=== PATIENT | male | born 1930 | race Caucasian/White ===

== ENCOUNTER 2016-12-07 20:06 | Emergency (ER) | payer MEDICARE, OTHER ==
[~2016-12-07 20:06] MED LIST: ARIC10TA; BABY81CH; BACT800T5 PO; CALCCHW12; CLAR5CHW; CYMB60CA3 PO; DOCU10CA PO; ELIQ5TAB PO; FLOM5CAP PO; FURO20TA2 PO; IPRASOL4 NEB; KEFL500C7 PO; METO-207 PO; NEUR100C PO; NITR0.4S; NITR4TASL SL; OMEGA; PERC5TAB6 PO; PRAV40TA2 PO; PRED FORTE; PROS5TAB; PROS5TAB PO; ROPI0.5T PO; SIMV40TA2; SYNT25TA PO; THERGRAN; TYLE325T5 PO; UROXATROL; ZOLO50TA
[2016-12-07 21:04] LABS: MEAN CORPUSCULAR HEMOGLOBIN 29.6 pg (27.0-33.0); MEAN CORPUSCULAR HGB CONC 32.9 g/dl (32.0-36.5); MEAN CORPUSCULAR VOLUME 90.1 fl (80.0-96.0); RED CELL DISTRIBUTION WIDTH 13.2 % (11.5-14.5); WHITE BLOOD COUNT 4.4 K/mm3 (4.0-10.0)
[2016-12-07 21:42] LABS: ALBUMIN 3.6 GM/DL (3.2-5.2); ALBUMIN/GLOBULIN RATIO 1.24 (1.00-1.93); ALKALINE PHOSPHATASE 78 U/L (45-117); ALT/SGPT 19 U/L (12-78); ANION GAP 7 MEQ/L (8-16); AST/SGOT 19 U/L (15-37); BILIRUBIN,DIRECT 0.2 MG/DL (0.0-0.2); BILIRUBIN,TOTAL 0.6 MG/DL (0.2-1.0); BLOOD UREA NITROGEN 16 MG/DL (7-18); CALCIUM LEVEL 8.1 MG/DL (8.8-10.2); CARBON DIOXIDE LEVEL 34 MEQ/L (21-32); CHLORIDE LEVEL 105 MEQ/L (98-107); CREATININE FOR GFR 1.21 MG/DL (0.70-1.30); GLOMERULAR FILTRATION RATE > 60.0 (>35); GLUCOSE, FASTING 94 MG/DL (83-110); POTASSIUM SERUM 3.8 MEQ/L (3.5-5.1); SODIUM LEVEL 146 MEQ/L (136-145); TOTAL PROTEIN 6.5 GM/DL (6.4-8.2)
--- NOTE | 2016-12-08 03:20 | EDDOCDS ---
Physician Documentation [facility] Name: Nadeem Guerra Age: 86 yrs Sex: Male : 1930 Arrival Date: 12/07/2016 Time: 20:06 Bed OBSERVATION Private MD: Lito Carter M.D. Disposition: 12/08/16 03:09 Discharged to Home/Self Care. Impression: Poisoning by antiallergic and antiemetic drugs, accidental (unintentional). - Condition is Stable. - Discharge Instructions: Overdose, Accidental. - Medication Reconciliation, Local Pharmacy Hours form. - Follow up: Lito Carter; When: As needed; Reason: Continuance of care. - Problem is an acute exacerbation. - Symptoms have improved. Historical: - Allergies: No known drug Allergies; - Home Meds: 1. metoprolol tartrate 25 mg Oral tab 1 tab 2 times per day 2. Eliquis 5 mg oral tab 1 tab 2 times per day 3. levothyroxine 25 mcg Oral cap 1 cap once daily 4. furosemide 20 mg Oral tab 1 tab once daily 5. finasteride 5 mg oral tab 1 tab once daily 6. tamsulosin 0.4 mg oral cp24 1 cap once daily 7. pravastatin 40 mg oral tab 1 tab once daily 8. ropinirole 0.5 mg oral tab 1 tab at bedtime 9. Vitamin D3 1,000 unit oral cap daily 10. ketorolac tromethamine BID in right eye 11. ipratropium bromide 0.02 % inhalation soln 1.25 mL 4 times per day - PMHx: COPD; Dementia; Atrial Fib; Hypothyroidism; BPH; High Cholesterol; Glaucoma; Cataracts; - PSHx: Appendectomy; Colostomy Reversal; Hernia repair; - Social history: Smoking status: Patient states former smoker of tobacco. No barriers to communication noted, The patient speaks fluent Cameroonian. - Family history: No immediate family members are acutely ill. - : The pt / caregiver states he / she is on anticoagulants: Home medication list is obtained from family members. - Exposure Risk Screening:: None identified. Vital Signs: 12/07 20:36 BP 134 / 73; Pulse 109; Resp 22; Temp 100.0(TE); Pulse Ox 99% on R/A; mv5 21:02 Pulse Ox 98% ; mv5 21:02 BP 128 / 73 (auto/); Pulse 85; Resp 20; mv5 21:32 BP 135 / 73 (auto/); mv5 21:37 Pulse 112 MON; mv5 22:02 BP 148 / 76 (auto/); mv5 22:02 Pulse 100 MON; Pulse Ox 98% ; mv5 22:32 BP 129 / 79 (auto/); mv5 22:32 Pulse 96 MON; Pulse Ox 98% ; mv5 23:02 BP 156 / 81 (auto/); mv5 23:02 Pulse 96 MON; Pulse Ox 97% ; mv5 23:32 BP 92 / 52 (auto/); mv5 23:32 Pulse 92 MON; Pulse Ox 97% ; mv5 12/08 00:02 BP 104 / 61 (auto/); mv5 00:02 Pulse 94 MON; Pulse Ox 96% ; mv5 00:32 BP 114 / 82 (auto/); mv5 00:32 Pulse 90 MON; Pulse Ox 96% ; mv5 01:02 BP 121 / 84 (auto/); mv5 01:02 Pulse 88 MON; Pulse Ox 96% ; mv5 01:32 BP 117 / 59 (auto/); mv5 01:32 Pulse 84 MON; Pulse Ox 95% ; mv5 02:02 BP 125 / 75 (auto/); mv5 02:02 Pulse 88 MON; Pulse Ox 94% ; mv5 02:32 BP 124 / 92 (auto/); mv5 02:32 Pulse 88 MON; Pulse Ox 98% ; mv5 MDM: 12/07 20:43 Consult PFS/PSA/Hot Die Picker ordered. mm11 20:43 Call Poison Control ordered. mm11 20:43 Detain Pt Until Medically/PFS Cleared ordered. mm11 20:43 IV Saline Lock ordered. mm11 20:44 Acetaminophen Level Ordered. EDMS 20:44 Basic Metabolic Profile Ordered. EDMS 20:44 Complete Blood Count Ordered. EDMS 20:44 Drug Eval Toxicology ED Only Ordered. EDMS 20:44 Ethyl Alcohol (ethanol) Ordered. EDMS 20:44 Liver Profile Ordered. EDMS 20:44 Salicylate Level Ordered. EDMS 20:44 Thyroid Stimulating Hormone Ordered. EDMS 22:34 [facility] Payment Agreement was scanned into [employer] and attached to record. jp5 22:34 Financial registration complete. jp5 12/08 01:01 Consult PFS/PSA/Hot Die Picker complete. cl 02:35 Acetaminophen Level Reviewed. mm11 02:35 Basic Metabolic Profile Reviewed. mm11 02:35 Complete Blood Count Reviewed. mm11 02:35 Salicylate Level Reviewed. mm11 02:35 Ethyl Alcohol (ethanol) Reviewed. mm11 02:35 Liver Profile Reviewed. mm11 02:35 Thyroid Stimulating Hormone Reviewed. mm11 02:35 Ambulate Patient to Assess Patient Safety ordered. mm11 Signatures: Dispatcher MedHost EDMS Pernell Norton, PSA PSA cl Kieran Sanchez, DO mm11 Stefania العراقي jp5 Delia Fowler,RN RN mv5 The chart was reviewed and I authenticate all verbal orders and agree with the evaluation and treatment provided.Attachments: 12/07 22:34 [facility] Payment Agreement jp5 MTDD
--- NOTE | 2016-12-08 03:20 | EDDOCDS ---
Nurse's Notes [facility] Name: Nadeem Guerra Age: 86 yrs Sex: Male : 1930 Arrival Date: 12/07/2016 Time: 20:06 Bed OBSERVATION Private MD: Lito Carter M.D. 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 Pt arrives drowsy, reports dementia at baseline and states pt is usually asleep at this time of evening. EMS denies N/V/D but gave nebulizer for chest congestion and wheezes. Adult Sepsis Screening: The patient does not have new or worsening altered mentation. Patient's respiratory rate is less than 22. Systolic blood pressure is greater than 100. Patient has a qSOFA score of 0- Negative Sepsis Screen. Suicide/Homicide risk assessment- Unable to assess, . Baseline dementia. Status: Patient is not a automotive services manager or dependent. Transition of care: patient was not received from another setting of care. 20:22 Acuity: JOCELYN Level 2 mv5 20:22 Method Of Arrival: Ambulance mv5 Triage Assessment: 20:36 General: Appears in no apparent distress, to be sleeping. at bedside to give mv5 information.. Pain: Denies pain. Neurological: Level of Consciousness is Oriented to person, Pt responds easily to verbal command, states "yes" when asked if he can open his eyes-does not open eyes.. Cardiovascular: Capillary refill is sluggish reports peripheral circulation is poor at baseline, fingertips cool.. Heart tones S1 S2 present Pulses are all present. Respiratory: Airway is patent Respiratory effort is even, unlabored, Respiratory pattern is regular, symmetrical. Derm: Skin is pink, warm & dry. Historical: - Allergies: No known drug Allergies; - Home Meds: 1. metoprolol tartrate 25 mg Oral tab 1 tab 2 times per day 2. Eliquis 5 mg oral tab 1 tab 2 times per day 3. levothyroxine 25 mcg Oral cap 1 cap once daily 4. furosemide 20 mg Oral tab 1 tab once daily 5. finasteride 5 mg oral tab 1 tab once daily 6. tamsulosin 0.4 mg oral cp24 1 cap once daily 7. pravastatin 40 mg oral tab 1 tab once daily 8. ropinirole 0.5 mg oral tab 1 tab at bedtime 9. Vitamin D3 1,000 unit oral cap daily 10. ketorolac tromethamine BID in right eye 11. ipratropium bromide 0.02 % inhalation soln 1.25 mL 4 times per day - PMHx: COPD; Dementia; Atrial Fib; Hypothyroidism; BPH; High Cholesterol; Glaucoma; Cataracts; - PSHx: Appendectomy; Colostomy Reversal; Hernia repair; - Social history: Smoking status: Patient states former smoker of tobacco. No barriers to communication noted, The patient speaks fluent Kazakh. - Family history: No immediate family members are acutely ill. - : The pt / caregiver states he / she is on anticoagulants: Home medication list is obtained from family members. - Exposure Risk Screening:: None identified. Screenin:42 Screening information is obtained from family members. Fall risk: At risk due to mv5 confusion/dementia. Assistance ADL's: requires no assistance with activities of daily living. Abuse/DV Screen: The patient / caregiver reports he/she is: not in a situation that causes fear, pain or injury. Nutritional screening: No deficits noted. Advance Directives: There is an active DNR order. home support is adequate. Assessment: 20:42 General: See triage assessment. mv5 21:15 General: Appears in no apparent distress, to be sleeping. family at bedside. Spoke with mv5 Bruna at [facility] poison control centers and she advised 4-6 hours of observation until pt has returned to baseline with most concerning side effect being somnolence.. Respiratory: Airway is patent Respiratory effort is even, unlabored, Respiratory pattern is regular, symmetrical. GI: Abdomen is obese, Bowel sounds present X 4 quads. Abd is soft X 4 quads. Derm: Skin is pink, warm & dry. 22:15 General: Appears in no apparent distress, comfortable, Repositions self in bed for mv5 comfort. at bedside.. Cardiovascular: Rhythm is sinus rhythm No ectopy. Respiratory:. Respiratory: Airway is patent Respiratory effort is even, unlabored, Respiratory pattern is regular, symmetrical. Derm: Skin is pink, warm & dry. 23:28 General: Appears in no apparent distress, at bedside.. Respiratory: Airway is mv5 patent Respiratory effort is even, unlabored, Respiratory pattern is regular, symmetrical. GI:. Derm: Skin is pink, warm & dry. 12/08 00:25 General: Appears in no apparent distress, to be sleeping. Spoke with Bruna at [facility] mv5 poison control.. Respiratory: Airway is patent Respiratory effort is even, unlabored, Respiratory pattern is regular, symmetrical. Derm: Skin is pink, warm & dry. 01:57 General: Appears in no apparent distress. Respiratory: Airway is patent Respiratory mv5 effort is even, unlabored, Respiratory pattern is regular, symmetrical. Derm: Skin is pink, warm & dry. 02:50 General: Appears in no apparent distress, Pt ambulated in hallway with stand by assist. mv5 Pt able to ambulate independently. aware.. 03:14 General: Appears in no apparent distress, comfortable. Neurological: Level of mv5 Consciousness is awake, alert. Respiratory: Airway is patent Respiratory effort is even, unlabored, Respiratory pattern is regular, symmetrical. Derm: Skin is pink, warm & dry. Vital Signs: 12/07 20:36 BP 134 / 73; Pulse 109; Resp 22; Temp 100.0(TE); Pulse Ox 99% on R/A; mv5 21:02 Pulse Ox 98% ; mv5 21:02 BP 128 / 73 (auto/); Pulse 85; Resp 20; mv5 21:32 BP 135 / 73 (auto/); mv5 21:37 Pulse 112 MON; mv5 22:02 BP 148 / 76 (auto/); mv5 22:02 Pulse 100 MON; Pulse Ox 98% ; mv5 22:32 BP 129 / 79 (auto/); mv5 22:32 Pulse 96 MON; Pulse Ox 98% ; mv5 23:02 BP 156 / 81 (auto/); mv5 23:02 Pulse 96 MON; Pulse Ox 97% ; mv5 23:32 BP 92 / 52 (auto/); mv5 23:32 Pulse 92 MON; Pulse Ox 97% ; mv5 12/08 00:02 BP 104 / 61 (auto/); mv5 00:02 Pulse 94 MON; Pulse Ox 96% ; mv5 00:32 BP 114 / 82 (auto/); mv5 00:32 Pulse 90 MON; Pulse Ox 96% ; mv5 01:02 BP 121 / 84 (auto/); mv5 01:02 Pulse 88 MON; Pulse Ox 96% ; mv5 01:32 BP 117 / 59 (auto/); mv5 01:32 Pulse 84 MON; Pulse Ox 95% ; mv5 02:02 BP 125 / 75 (auto/); mv5 02:02 Pulse 88 MON; Pulse Ox 94% ; mv5 02:32 BP 124 / 92 (auto/); mv5 02:32 Pulse 88 MON; Pulse Ox 98% ; mv5 Vitals: 12/07 20:36 Log In Time N/A - ambulance arrival. mv5 ED Course: 20:07 Patient visited by Tash Posadas PCA. rufina 20:07 Lito Carter is Private Physician. rufina 20:07 Patient moved to Waiting rufina 20:08 Monica Yang RN is Primary Nurse. rufina 20:08 Delia Fowler RN is Primary Nurse. rufina 20:08 Patient moved to 17 rufina 20:16 Kieran Sanchez DO is Attending Physician. mm11 20:16 Patient visited by Kieran Sanchez DO. mm11 20:25 Triage Initiated mv5 20:42 Patient visited by Kieran Sanchez DO. mm11 20:42 The patient / caregiver is instructed regarding the plan of care and ED course. mv5 20:55 Acetaminophen Level Sent. mv5 20:55 Basic Metabolic Profile Sent. mv5 20:55 Complete Blood Count Sent. mv5 20:55 Ethyl Alcohol (ethanol) Sent. mv5 20:55 Salicylate Level Sent. mv5 20:55 Thyroid Stimulating Hormone Sent. mv5 20:56 Inserted saline lock: 20 gauge in right antecubital area and blood collected. The mv5 patient tolerated the procedure well. 21:20 Patient visited by Delia Fowler RN. mv5 21:38 Patient moved to OBSERVATION mm11 22:34 [facility] Payment Agreement was scanned into SHAD[employer] and attached to record. jp5 22:47 Primary Nurse role handed off by Monica Yang, BEBO ar3 22:51 Patient visited by Delia Fowler,BEBO. mv5 23:28 Patient visited by Delia Fowler,BEBO. mv5 12/08 00:32 Patient visited by Delia Fowler RN. mv5 01:56 Patient visited by Delia Fowler RN. mv5 02:02 Discontinued intact, bleeding controlled, pressure dressing applied, No mv5 redness/swelling at site. No procedures done that require assistance. 03:07 Lito Carter is Referral Physician. mm11 Order Results: Lab Order: Acetaminophen Level; [facility]' 12/07/16 20:58 Test: ACETAMINOPHEN LEVEL; Value: < 2.0; Range: 10.0-30.0; Abnormal: Below low normal; Units: UG/ML; Status: F Lab Order: Basic Metabolic Profile; [facility]' 12/07/16 20:58 Test: GLUCOSE, FASTING; Value: 94; Range: 83-110; Units: MG/DL; Status: F Test: BLOOD UREA NITROGEN; Value: 16; Range: 7-18; Units: MG/DL; Status: F Test: CREATININE FOR GFR; Value: 1.21; Range: 0.70-1.30; Units: MG/DL; Status: F Test: GLOMERULAR FILTRATION RATE; Value: > 60.0; Range: >35; Status: F Test: SODIUM LEVEL; Value: 146; Range: 136-145; Abnormal: Above high normal; Units: MEQ/L; Status: F Test: POTASSIUM SERUM; Value: 3.8; Range: 3.5-5.1; Units: MEQ/L; Status: F Test: CHLORIDE LEVEL; Value: 105; Range: 98-107; Units: MEQ/L; Status: F Test: CARBON DIOXIDE LEVEL; Value: 34; Range: 21-32; Abnormal: Above high normal; Units: MEQ/L; Status: F Test: ANION GAP; Value: 7; Range: 8-16; Abnormal: Below low normal; Units: MEQ/L; Status: F Test: CALCIUM LEVEL; Value: 8.1; Range: 8.8-10.2; Abnormal: Below low normal; Units: MG/DL; Status: F Test Note: ; Units are mL/min/1.73 m2 Chronic Kidney Disease Staging per NKF: Stage I & II GFR >=60 Normal to Mildly Decreased Stage III GFR 30-59 Moderately Decreased Stage IV GFR 15-29 Severely Decreased Stage V GFR <15 Very Little GFR Left ESRD GFR <15 on [employer] Lab Order: Complete Blood Count; [facility]' 12/07/16 20:58 Test: WHITE BLOOD COUNT; Value: 4.4; Range: 4.0-10.0; Units: K/mm3; Status: F Test: RED BLOOD COUNT; Value: 4.52; Range: 4.30-6.10; Units: M/mm3; Status: F Test: HEMOGLOBIN; Value: 13.4; Range: 14.0-18.0; Abnormal: Below low normal; Units: g/dl; Status: F Test: HEMATOCRIT; Value: 40.7; Range: 42.0-52.0; Abnormal: Below low normal; Units: %; Status: F Test: MEAN CORPUSCULAR VOLUME; Value: 90.1; Range: 80.0-96.0; Units: fl; Status: F Test: MEAN CORPUSCULAR HEMOGLOBIN; Value: 29.6; Range: 27.0-33.0; Units: pg; Status: F Test: MEAN CORPUSCULAR HGB CONC; Value: 32.9; Range: 32.0-36.5; Units: g/dl; Status: F Test: RED CELL DISTRIBUTION WIDTH; Value: 13.2; Range: 11.5-14.5; Units: %; Status: F Test: PLATELET COUNT, AUTOMATED; Value: 125; Range: 150-450; Abnormal: Below low normal; Units: k/mm3; Status: F Lab Order: Ethyl Alcohol (ethanol); SPEC' 12/07/16 20:58 Test: ETHYL ALCOHOL (ETHANOL); Value: < 0.003; Range: 0.000-0.010; Units: %; Status: F Lab Order: Liver Profile; SPEC'M 12/07/16 20:58 Test: AST/SGOT; Value: 19; Range: 15-37; Units: U/L; Status: F Test: ALT/SGPT; Value: 19; Range: 12-78; Units: U/L; Status: F Test: ALKALINE PHOSPHATASE; Value: 78; Range: 45-117; Units: U/L; Status: F Test: BILIRUBIN,TOTAL; Value: 0.6; Range: 0.2-1.0; Units: MG/DL; Status: F Test: BILIRUBIN,DIRECT; Value: 0.2; Range: 0.0-0.2; Units: MG/DL; Status: F Test: TOTAL PROTEIN; Value: 6.5; Range: 6.4-8.2; Units: GM/DL; Status: F Test: ALBUMIN; Value: 3.6; Range: 3.2-5.2; Units: GM/DL; Status: F Test: ALBUMIN/GLOBULIN RATIO; Value: 1.24; Range: 1.00-1.93; Status: F Lab Order: Salicylate Level; SPEC'M 12/07/16 20:58 Test: SALICYLATE LEVEL; Value: < 1.7; Range: 5.0-30.0; Abnormal: Below low normal; Units: MG/DL; Status: F Lab Order: Thyroid Stimulating Hormone; SPEC'M 12/07/16 20:58 Test: THYROID STIMULATING HORMONE; Value: 1.410; Range: 0.358-3.740; Units: uIU/ML; Status: F Outcome: 02:02 Discharge Assessment: Patient awake, alert and oriented x 3. No cognitive and/or mv5 functional deficits noted. Patient verbalized understanding of disposition instructions. patient administered narcotics - no. The following High Risk Discharge criteria are identified: None. Discharged to home with family. Condition: stable. Demonstrated understanding of Pt was receptive of discharge instructions/ teaching. No special radiology studies were completed. Property sent home with patient. 03:09 Discharge ordered by Provider. mm11 03:19 Patient left the ED. mv5 Signatures: Kieran Sanchez DO DO mm11 Layla Bernardo, INVESTIGATOR FRAUD INVESTIGATOR FRAUD ar3 Tash Posadas, INVESTIGATOR FRAUD INVESTIGATOR FRAUD Stefania Arechiga jp5 Delia Fowler,RN RN mv5 Corrections: (The following items were deleted from the chart) 12/07 21:15 21:02 BP 128 / 73 Auto; mv5 mv5 12/08 00:33 00:25 General: Appears in no apparent distress, to be sleeping. mv5 mv5 MTDD
--- NOTE | 2016-12-10 04:20 | EDDOCDS ---
Physician Documentation [facility] Name: Nadeem Guerra Age: 86 yrs Sex: Male : 1930 Arrival Date: 12/07/2016 Time: 20:06 Bed OBSERVATION Private MD: Lito Carter M.D. Disposition: 12/08/16 03:09 Discharged to Home/Self Care. Impression: Poisoning by antiallergic and antiemetic drugs, accidental (unintentional). - Condition is Stable. - Discharge Instructions: Overdose, Accidental. - Medication Reconciliation, Local Pharmacy Hours form. - Follow up: Lito Carter; When: As needed; Reason: Continuance of care. - Problem is an acute exacerbation. - Symptoms have improved. Historical: - Allergies: No known drug Allergies; - Home Meds: 1. metoprolol tartrate 25 mg Oral tab 1 tab 2 times per day 2. Eliquis 5 mg oral tab 1 tab 2 times per day 3. levothyroxine 25 mcg Oral cap 1 cap once daily 4. furosemide 20 mg Oral tab 1 tab once daily 5. finasteride 5 mg oral tab 1 tab once daily 6. tamsulosin 0.4 mg oral cp24 1 cap once daily 7. pravastatin 40 mg oral tab 1 tab once daily 8. ropinirole 0.5 mg oral tab 1 tab at bedtime 9. Vitamin D3 1,000 unit oral cap daily 10. ketorolac tromethamine BID in right eye 11. ipratropium bromide 0.02 % inhalation soln 1.25 mL 4 times per day - PMHx: COPD; Dementia; Atrial Fib; Hypothyroidism; BPH; High Cholesterol; Glaucoma; Cataracts; - PSHx: Appendectomy; Colostomy Reversal; Hernia repair; - Social history: Smoking status: Patient states former smoker of tobacco. No barriers to communication noted, The patient speaks fluent Solomon Islander. - Family history: No immediate family members are acutely ill. - : The pt / caregiver states he / she is on anticoagulants: Home medication list is obtained from family members. - Exposure Risk Screening:: None identified. Vital Signs: 12/07 20:36 BP 134 / 73; Pulse 109; Resp 22; Temp 100.0(TE); Pulse Ox 99% on R/A; mv5 21:02 Pulse Ox 98% ; mv5 21:02 BP 128 / 73 (auto/); Pulse 85; Resp 20; mv5 21:32 BP 135 / 73 (auto/); mv5 21:37 Pulse 112 MON; mv5 22:02 BP 148 / 76 (auto/); mv5 22:02 Pulse 100 MON; Pulse Ox 98% ; mv5 22:32 BP 129 / 79 (auto/); mv5 22:32 Pulse 96 MON; Pulse Ox 98% ; mv5 23:02 BP 156 / 81 (auto/); mv5 23:02 Pulse 96 MON; Pulse Ox 97% ; mv5 23:32 BP 92 / 52 (auto/); mv5 23:32 Pulse 92 MON; Pulse Ox 97% ; mv5 12/08 00:02 BP 104 / 61 (auto/); mv5 00:02 Pulse 94 MON; Pulse Ox 96% ; mv5 00:32 BP 114 / 82 (auto/); mv5 00:32 Pulse 90 MON; Pulse Ox 96% ; mv5 01:02 BP 121 / 84 (auto/); mv5 01:02 Pulse 88 MON; Pulse Ox 96% ; mv5 01:32 BP 117 / 59 (auto/); mv5 01:32 Pulse 84 MON; Pulse Ox 95% ; mv5 02:02 BP 125 / 75 (auto/); mv5 02:02 Pulse 88 MON; Pulse Ox 94% ; mv5 02:32 BP 124 / 92 (auto/); mv5 02:32 Pulse 88 MON; Pulse Ox 98% ; mv5 MDM: 12/07 20:43 Consult PFS/PSA/Loan Representative ordered. mm11 20:43 Call Poison Control ordered. mm11 20:43 Detain Pt Until Medically/PFS Cleared ordered. mm11 20:43 IV Saline Lock ordered. mm11 20:44 Acetaminophen Level Ordered. EDMS 20:44 Basic Metabolic Profile Ordered. EDMS 20:44 Complete Blood Count Ordered. EDMS 20:44 Drug Eval Toxicology ED Only Ordered. EDMS 20:44 Ethyl Alcohol (ethanol) Ordered. EDMS 20:44 Liver Profile Ordered. EDMS 20:44 Salicylate Level Ordered. EDMS 20:44 Thyroid Stimulating Hormone Ordered. EDMS 22:34 [facility] Payment Agreement was scanned into [employer] and attached to record. jp5 22:34 Financial registration complete. jp5 12/08 01:01 Consult PFS/PSA/Loan Representative complete. cl 02:35 Acetaminophen Level Reviewed. mm11 02:35 Basic Metabolic Profile Reviewed. mm11 02:35 Complete Blood Count Reviewed. mm11 02:35 Salicylate Level Reviewed. mm11 02:35 Ethyl Alcohol (ethanol) Reviewed. mm11 02:35 Liver Profile Reviewed. mm11 02:35 Thyroid Stimulating Hormone Reviewed. mm11 02:35 Ambulate Patient to Assess Patient Safety ordered. mm11 12:07 T-Sheet-- Draft Copy was scanned into [employer] and attached to record. gb Signatures: Dispatcher MedHost EDMS Pernell Norton, PSA PSA cl Abby, Xena, Reg Reg gb Kieran Sanchez, DO mm11 Stefania العراقي jp5 Delia Fowler,RN RN mv5 The chart was reviewed and I authenticate all verbal orders and agree with the evaluation and treatment provided.Attachments: 12/07 22:34 [facility] Payment Agreement jp5 12/08 12:07 T-Sheet-- Draft Copy gb Chart Complete MTDD
--- NOTE | 2016-12-10 04:20 | EDDOCDS ---
Nurse's Notes [facility] Name: Nadeem Guerra Age: 86 yrs Sex: Male : 1930 Arrival Date: 12/07/2016 Time: 20:06 Bed OBSERVATION Private MD: Lito Carter M.D. 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 Pt arrives drowsy, reports dementia at baseline and states pt is usually asleep at this time of evening. EMS denies N/V/D but gave nebulizer for chest congestion and wheezes. Adult Sepsis Screening: The patient does not have new or worsening altered mentation. Patient's respiratory rate is less than 22. Systolic blood pressure is greater than 100. Patient has a qSOFA score of 0- Negative Sepsis Screen. Suicide/Homicide risk assessment- Unable to assess, . Baseline dementia. Status: Patient is not a client service consultant or dependent. Transition of care: patient was not received from another setting of care. 20:22 Acuity: JOCELYN Level 2 mv5 20:22 Method Of Arrival: Ambulance mv5 Triage Assessment: 20:36 General: Appears in no apparent distress, to be sleeping. at bedside to give mv5 information.. Pain: Denies pain. Neurological: Level of Consciousness is Oriented to person, Pt responds easily to verbal command, states "yes" when asked if he can open his eyes-does not open eyes.. Cardiovascular: Capillary refill is sluggish reports peripheral circulation is poor at baseline, fingertips cool.. Heart tones S1 S2 present Pulses are all present. Respiratory: Airway is patent Respiratory effort is even, unlabored, Respiratory pattern is regular, symmetrical. Derm: Skin is pink, warm & dry. Historical: - Allergies: No known drug Allergies; - Home Meds: 1. metoprolol tartrate 25 mg Oral tab 1 tab 2 times per day 2. Eliquis 5 mg oral tab 1 tab 2 times per day 3. levothyroxine 25 mcg Oral cap 1 cap once daily 4. furosemide 20 mg Oral tab 1 tab once daily 5. finasteride 5 mg oral tab 1 tab once daily 6. tamsulosin 0.4 mg oral cp24 1 cap once daily 7. pravastatin 40 mg oral tab 1 tab once daily 8. ropinirole 0.5 mg oral tab 1 tab at bedtime 9. Vitamin D3 1,000 unit oral cap daily 10. ketorolac tromethamine BID in right eye 11. ipratropium bromide 0.02 % inhalation soln 1.25 mL 4 times per day - PMHx: COPD; Dementia; Atrial Fib; Hypothyroidism; BPH; High Cholesterol; Glaucoma; Cataracts; - PSHx: Appendectomy; Colostomy Reversal; Hernia repair; - Social history: Smoking status: Patient states former smoker of tobacco. No barriers to communication noted, The patient speaks fluent Greenlandic. - Family history: No immediate family members are acutely ill. - : The pt / caregiver states he / she is on anticoagulants: Home medication list is obtained from family members. - Exposure Risk Screening:: None identified. Screenin:42 Screening information is obtained from family members. Fall risk: At risk due to mv5 confusion/dementia. Assistance ADL's: requires no assistance with activities of daily living. Abuse/DV Screen: The patient / caregiver reports he/she is: not in a situation that causes fear, pain or injury. Nutritional screening: No deficits noted. Advance Directives: There is an active DNR order. home support is adequate. Assessment: 20:42 General: See triage assessment. mv5 21:15 General: Appears in no apparent distress, to be sleeping. family at bedside. Spoke with mv5 Bruna at [facility] poison control centers and she advised 4-6 hours of observation until pt has returned to baseline with most concerning side effect being somnolence.. Respiratory: Airway is patent Respiratory effort is even, unlabored, Respiratory pattern is regular, symmetrical. GI: Abdomen is obese, Bowel sounds present X 4 quads. Abd is soft X 4 quads. Derm: Skin is pink, warm & dry. 22:15 General: Appears in no apparent distress, comfortable, Repositions self in bed for mv5 comfort. at bedside.. Cardiovascular: Rhythm is sinus rhythm No ectopy. Respiratory:. Respiratory: Airway is patent Respiratory effort is even, unlabored, Respiratory pattern is regular, symmetrical. Derm: Skin is pink, warm & dry. 23:28 General: Appears in no apparent distress, at bedside.. Respiratory: Airway is mv5 patent Respiratory effort is even, unlabored, Respiratory pattern is regular, symmetrical. GI:. Derm: Skin is pink, warm & dry. 12/08 00:25 General: Appears in no apparent distress, to be sleeping. Spoke with Bruna at [facility] mv5 poison control.. Respiratory: Airway is patent Respiratory effort is even, unlabored, Respiratory pattern is regular, symmetrical. Derm: Skin is pink, warm & dry. 01:57 General: Appears in no apparent distress. Respiratory: Airway is patent Respiratory mv5 effort is even, unlabored, Respiratory pattern is regular, symmetrical. Derm: Skin is pink, warm & dry. 02:50 General: Appears in no apparent distress, Pt ambulated in hallway with stand by assist. mv5 Pt able to ambulate independently. aware.. 03:14 General: Appears in no apparent distress, comfortable. Neurological: Level of mv5 Consciousness is awake, alert. Respiratory: Airway is patent Respiratory effort is even, unlabored, Respiratory pattern is regular, symmetrical. Derm: Skin is pink, warm & dry. Vital Signs: 12/07 20:36 BP 134 / 73; Pulse 109; Resp 22; Temp 100.0(TE); Pulse Ox 99% on R/A; mv5 21:02 Pulse Ox 98% ; mv5 21:02 BP 128 / 73 (auto/); Pulse 85; Resp 20; mv5 21:32 BP 135 / 73 (auto/); mv5 21:37 Pulse 112 MON; mv5 22:02 BP 148 / 76 (auto/); mv5 22:02 Pulse 100 MON; Pulse Ox 98% ; mv5 22:32 BP 129 / 79 (auto/); mv5 22:32 Pulse 96 MON; Pulse Ox 98% ; mv5 23:02 BP 156 / 81 (auto/); mv5 23:02 Pulse 96 MON; Pulse Ox 97% ; mv5 23:32 BP 92 / 52 (auto/); mv5 23:32 Pulse 92 MON; Pulse Ox 97% ; mv5 12/08 00:02 BP 104 / 61 (auto/); mv5 00:02 Pulse 94 MON; Pulse Ox 96% ; mv5 00:32 BP 114 / 82 (auto/); mv5 00:32 Pulse 90 MON; Pulse Ox 96% ; mv5 01:02 BP 121 / 84 (auto/); mv5 01:02 Pulse 88 MON; Pulse Ox 96% ; mv5 01:32 BP 117 / 59 (auto/); mv5 01:32 Pulse 84 MON; Pulse Ox 95% ; mv5 02:02 BP 125 / 75 (auto/); mv5 02:02 Pulse 88 MON; Pulse Ox 94% ; mv5 02:32 BP 124 / 92 (auto/); mv5 02:32 Pulse 88 MON; Pulse Ox 98% ; mv5 Vitals: 12/07 20:36 Log In Time N/A - ambulance arrival. mv5 ED Course: 20:07 Patient visited by Tash Posadas PCA. rufina 20:07 Lito Carter is Private Physician. rufina 20:07 Patient moved to Waiting rufina 20:08 Monica Yang RN is Primary Nurse. rufina 20:08 Delia Fowler RN is Primary Nurse. rufina 20:08 Patient moved to 17 rufina 20:16 Kieran Sanchez DO is Attending Physician. mm11 20:16 Patient visited by Kieran Sanchez DO. mm11 20:25 Triage Initiated mv5 20:42 Patient visited by Kieran Sanchez DO. mm11 20:42 The patient / caregiver is instructed regarding the plan of care and ED course. mv5 20:55 Acetaminophen Level Sent. mv5 20:55 Basic Metabolic Profile Sent. mv5 20:55 Complete Blood Count Sent. mv5 20:55 Ethyl Alcohol (ethanol) Sent. mv5 20:55 Salicylate Level Sent. mv5 20:55 Thyroid Stimulating Hormone Sent. mv5 20:56 Inserted saline lock: 20 gauge in right antecubital area and blood collected. The mv5 patient tolerated the procedure well. 21:20 Patient visited by Delia Fowler RN. mv5 21:38 Patient moved to OBSERVATION mm11 22:34 [facility] Payment Agreement was scanned into [employer] and attached to record. jp5 22:47 Primary Nurse role handed off by Monica Yang, BEBO ar3 22:51 Patient visited by Delia Fowler,BEBO. mv5 23:28 Patient visited by Delia Fowler,BEBO. mv5 12/08 00:32 Patient visited by Delia Fowler RN. mv5 01:56 Patient visited by Delia Fowler RN. mv5 02:02 Discontinued intact, bleeding controlled, pressure dressing applied, No mv5 redness/swelling at site. No procedures done that require assistance. 03:07 Lito Carter is Referral Physician. mm11 12:07 T-Sheet-- Draft Copy was scanned into [employer] and attached to record. gb Order Results: Lab Order: Acetaminophen Level; SPEC'M 12/07/16 20:58 Test: ACETAMINOPHEN LEVEL; Value: < 2.0; Range: 10.0-30.0; Abnormal: Below low normal; Units: UG/ML; Status: F Lab Order: Basic Metabolic Profile; SPEC'M 12/07/16 20:58 Test: GLUCOSE, FASTING; Value: 94; Range: 83-110; Units: MG/DL; Status: F Test: BLOOD UREA NITROGEN; Value: 16; Range: 7-18; Units: MG/DL; Status: F Test: CREATININE FOR GFR; Value: 1.21; Range: 0.70-1.30; Units: MG/DL; Status: F Test: GLOMERULAR FILTRATION RATE; Value: > 60.0; Range: >35; Status: F Test: SODIUM LEVEL; Value: 146; Range: 136-145; Abnormal: Above high normal; Units: MEQ/L; Status: F Test: POTASSIUM SERUM; Value: 3.8; Range: 3.5-5.1; Units: MEQ/L; Status: F Test: CHLORIDE LEVEL; Value: 105; Range: 98-107; Units: MEQ/L; Status: F Test: CARBON DIOXIDE LEVEL; Value: 34; Range: 21-32; Abnormal: Above high normal; Units: MEQ/L; Status: F Test: ANION GAP; Value: 7; Range: 8-16; Abnormal: Below low normal; Units: MEQ/L; Status: F Test: CALCIUM LEVEL; Value: 8.1; Range: 8.8-10.2; Abnormal: Below low normal; Units: MG/DL; Status: F Test Note: ; Units are mL/min/1.73 m2 Chronic Kidney Disease Staging per NKF: Stage I & II GFR >=60 Normal to Mildly Decreased Stage III GFR 30-59 Moderately Decreased Stage IV GFR 15-29 Severely Decreased Stage V GFR <15 Very Little GFR Left ESRD GFR <15 on [employer] Lab Order: Complete Blood Count; [facility] 12/07/16 20:58 Test: WHITE BLOOD COUNT; Value: 4.4; Range: 4.0-10.0; Units: K/mm3; Status: F Test: RED BLOOD COUNT; Value: 4.52; Range: 4.30-6.10; Units: M/mm3; Status: F Test: HEMOGLOBIN; Value: 13.4; Range: 14.0-18.0; Abnormal: Below low normal; Units: g/dl; Status: F Test: HEMATOCRIT; Value: 40.7; Range: 42.0-52.0; Abnormal: Below low normal; Units: %; Status: F Test: MEAN CORPUSCULAR VOLUME; Value: 90.1; Range: 80.0-96.0; Units: fl; Status: F Test: MEAN CORPUSCULAR HEMOGLOBIN; Value: 29.6; Range: 27.0-33.0; Units: pg; Status: F Test: MEAN CORPUSCULAR HGB CONC; Value: 32.9; Range: 32.0-36.5; Units: g/dl; Status: F Test: RED CELL DISTRIBUTION WIDTH; Value: 13.2; Range: 11.5-14.5; Units: %; Status: F Test: PLATELET COUNT, AUTOMATED; Value: 125; Range: 150-450; Abnormal: Below low normal; Units: k/mm3; Status: F Lab Order: Ethyl Alcohol (ethanol); [facility] 12/07/16 20:58 Test: ETHYL ALCOHOL (ETHANOL); Value: < 0.003; Range: 0.000-0.010; Units: %; Status: F Lab Order: Liver Profile; [facility] 12/07/16 20:58 Test: AST/SGOT; Value: 19; Range: 15-37; Units: U/L; Status: F Test: ALT/SGPT; Value: 19; Range: 12-78; Units: U/L; Status: F Test: ALKALINE PHOSPHATASE; Value: 78; Range: 45-117; Units: U/L; Status: F Test: BILIRUBIN,TOTAL; Value: 0.6; Range: 0.2-1.0; Units: MG/DL; Status: F Test: BILIRUBIN,DIRECT; Value: 0.2; Range: 0.0-0.2; Units: MG/DL; Status: F Test: TOTAL PROTEIN; Value: 6.5; Range: 6.4-8.2; Units: GM/DL; Status: F Test: ALBUMIN; Value: 3.6; Range: 3.2-5.2; Units: GM/DL; Status: F Test: ALBUMIN/GLOBULIN RATIO; Value: 1.24; Range: 1.00-1.93; Status: F Lab Order: Salicylate Level; SPEC'M 12/07/16 20:58 Test: SALICYLATE LEVEL; Value: < 1.7; Range: 5.0-30.0; Abnormal: Below low normal; Units: MG/DL; Status: F Lab Order: Thyroid Stimulating Hormone; SPEC'M 12/07/16 20:58 Test: THYROID STIMULATING HORMONE; Value: 1.410; Range: 0.358-3.740; Units: uIU/ML; Status: F Outcome: 02:02 Discharge Assessment: Patient awake, alert and oriented x 3. No cognitive and/or mv5 functional deficits noted. Patient verbalized understanding of disposition instructions. patient administered narcotics - no. The following High Risk Discharge criteria are identified: None. Discharged to home with family. Condition: stable. Demonstrated understanding of Pt was receptive of discharge instructions/ teaching. No special radiology studies were completed. Property sent home with patient. 03:09 Discharge ordered by Provider. mm11 03:19 Patient left the ED. mv5 Signatures: Xena Mora, Robin Reg Kieran Brown DO DO mm11 Layla Bernardo, CENTRAL OFFICE REPAIRER CENTRAL OFFICE REPAIRER ar3 Tash Posadas, CENTRAL OFFICE REPAIRER CENTRAL OFFICE REPAIRER Stefania Arechiga jp5 Delia Fowler,RN RN mv5 Corrections: (The following items were deleted from the chart) 12/07 21:15 21:02 BP 128 / 73 Auto; mv5 mv5 12/08 00:33 00:25 General: Appears in no apparent distress, to be sleeping. mv5 mv5 Chart Complete MTDD
--- NOTE | 2016-12-10 04:20 | EDDOCDS ---
Physician Documentation [facility] Name: Nadeem Guerra Age: 86 yrs Sex: Male : 1930 Arrival Date: 12/07/2016 Time: 20:06 Bed OBSERVATION Private MD: Lito Carter M.D. Disposition: 12/08/16 03:09 Discharged to Home/Self Care. Impression: Poisoning by antiallergic and antiemetic drugs, accidental (unintentional). - Condition is Stable. - Discharge Instructions: Overdose, Accidental. - Medication Reconciliation, Local Pharmacy Hours form. - Follow up: Lito Carter; When: As needed; Reason: Continuance of care. - Problem is an acute exacerbation. - Symptoms have improved. Historical: - Allergies: No known drug Allergies; - Home Meds: 1. metoprolol tartrate 25 mg Oral tab 1 tab 2 times per day 2. Eliquis 5 mg oral tab 1 tab 2 times per day 3. levothyroxine 25 mcg Oral cap 1 cap once daily 4. furosemide 20 mg Oral tab 1 tab once daily 5. finasteride 5 mg oral tab 1 tab once daily 6. tamsulosin 0.4 mg oral cp24 1 cap once daily 7. pravastatin 40 mg oral tab 1 tab once daily 8. ropinirole 0.5 mg oral tab 1 tab at bedtime 9. Vitamin D3 1,000 unit oral cap daily 10. ketorolac tromethamine BID in right eye 11. ipratropium bromide 0.02 % inhalation soln 1.25 mL 4 times per day - PMHx: COPD; Dementia; Atrial Fib; Hypothyroidism; BPH; High Cholesterol; Glaucoma; Cataracts; - PSHx: Appendectomy; Colostomy Reversal; Hernia repair; - Social history: Smoking status: Patient states former smoker of tobacco. No barriers to communication noted, The patient speaks fluent British. - Family history: No immediate family members are acutely ill. - : The pt / caregiver states he / she is on anticoagulants: Home medication list is obtained from family members. - Exposure Risk Screening:: None identified. Vital Signs: 12/07 20:36 BP 134 / 73; Pulse 109; Resp 22; Temp 100.0(TE); Pulse Ox 99% on R/A; mv5 21:02 Pulse Ox 98% ; mv5 21:02 BP 128 / 73 (auto/); Pulse 85; Resp 20; mv5 21:32 BP 135 / 73 (auto/); mv5 21:37 Pulse 112 MON; mv5 22:02 BP 148 / 76 (auto/); mv5 22:02 Pulse 100 MON; Pulse Ox 98% ; mv5 22:32 BP 129 / 79 (auto/); mv5 22:32 Pulse 96 MON; Pulse Ox 98% ; mv5 23:02 BP 156 / 81 (auto/); mv5 23:02 Pulse 96 MON; Pulse Ox 97% ; mv5 23:32 BP 92 / 52 (auto/); mv5 23:32 Pulse 92 MON; Pulse Ox 97% ; mv5 12/08 00:02 BP 104 / 61 (auto/); mv5 00:02 Pulse 94 MON; Pulse Ox 96% ; mv5 00:32 BP 114 / 82 (auto/); mv5 00:32 Pulse 90 MON; Pulse Ox 96% ; mv5 01:02 BP 121 / 84 (auto/); mv5 01:02 Pulse 88 MON; Pulse Ox 96% ; mv5 01:32 BP 117 / 59 (auto/); mv5 01:32 Pulse 84 MON; Pulse Ox 95% ; mv5 02:02 BP 125 / 75 (auto/); mv5 02:02 Pulse 88 MON; Pulse Ox 94% ; mv5 02:32 BP 124 / 92 (auto/); mv5 02:32 Pulse 88 MON; Pulse Ox 98% ; mv5 MDM: 12/07 20:43 Consult PFS/PSA/Keg Filler ordered. mm11 20:43 Call Poison Control ordered. mm11 20:43 Detain Pt Until Medically/PFS Cleared ordered. mm11 20:43 IV Saline Lock ordered. mm11 20:44 Acetaminophen Level Ordered. EDMS 20:44 Basic Metabolic Profile Ordered. EDMS 20:44 Complete Blood Count Ordered. EDMS 20:44 Drug Eval Toxicology ED Only Ordered. EDMS 20:44 Ethyl Alcohol (ethanol) Ordered. EDMS 20:44 Liver Profile Ordered. EDMS 20:44 Salicylate Level Ordered. EDMS 20:44 Thyroid Stimulating Hormone Ordered. EDMS 22:34 [facility] Payment Agreement was scanned into [employer] and attached to record. jp5 22:34 Financial registration complete. jp5 12/08 01:01 Consult PFS/PSA/Keg Filler complete. cl 02:35 Acetaminophen Level Reviewed. mm11 02:35 Basic Metabolic Profile Reviewed. mm11 02:35 Complete Blood Count Reviewed. mm11 02:35 Salicylate Level Reviewed. mm11 02:35 Ethyl Alcohol (ethanol) Reviewed. mm11 02:35 Liver Profile Reviewed. mm11 02:35 Thyroid Stimulating Hormone Reviewed. mm11 02:35 Ambulate Patient to Assess Patient Safety ordered. mm11 12:07 T-Sheet-- Draft Copy was scanned into [employer] and attached to record. gb Signatures: Dispatcher [employer] EDMS Pernell Norton, PSA PSA cl Abby, Xena, Reg Reg gb Kieran Sanchez, DO mm11 Stefania العراقي jp5 Delia Fowler,RN RN mv5 The chart was reviewed and I authenticate all verbal orders and agree with the evaluation and treatment provided.Attachments: 12/07 22:34 [facility] Payment Agreement jp5 12/08 12:07 T-Sheet-- Draft Copy gb Chart Complete MTDD
== END 2016-12-08 03:19 | disposition home or self-care (01) ==
LOC: M ED 20:06
DX: T45.0X1A Poisoning by antiallergic and antiemetic drugs, accidental (unintentional), initial encounter (principal); X58.XXXA Exposure to other specified factors, initial encounter; Y92.89 Other specified places as the place of occurrence of the external cause; Y93.89 Activity, other specified; Y99.8 Other external cause status; F03.90 Unspecified dementia, unspecified severity, without behavioral disturbance, psychotic disturbance, mood disturbance, and anxiety; J44.9 Chronic obstructive pulmonary disease, unspecified; H40.9 Unspecified glaucoma; H26.9 Unspecified cataract; Z90.89 Acquired absence of other organs; Z87.891 Personal history of nicotine dependence; Z79.01 Long term (current) use of anticoagulants; Z79.899 Other long term (current) drug therapy
CPT/HCPCS: 36415; 80048; 80076; 84443; 85027; 99284; G0480

== ENCOUNTER → 2017-07-08 | Outpatient (REF) | payer MEDICARE, OTHER ==
[~2017-07-08] MED LIST changes: +KEFL500C17 PO; -KEFL500C7 PO; -METO-207 PO; +METO1TAB7 PO; +PERC5TAB12 PO; -PERC5TAB6 PO
== END ==
LOC: M SMT 17:00
PROVIDERS: ATTEND Urology
DX: R82.90 Unspecified abnormal findings in urine (principal)

== ENCOUNTER → 2017-11-02 | Outpatient (REF) | payer MEDICARE, OTHER ==
[2017-11-02 18:36] LABS: APPEARANCE, URINE CLEAR (CLEAR); BACTERIA, URINE AUTO NEGATIVE (NEGATIVE); BILIRUBIN, URINE AUTO NEGATIVE (NEGATIVE); BLOOD, URINE BLOOD 2+ (NEGATIVE); COLOR, URINE YELLOW (YELLOW); GLUCOSE, URINE (UA) AUTO NEGATIVE (NEGATIVE); KETONE, URINE AUTO NEGATIVE (NEGATIVE); LEUKOCYTE ESTERASE, URINE AUTO TRACE (NEGATIVE); MUCUS, URINE SMALL (NEGATIVE); NITRITE, URINE AUTO NEGATIVE (NEGATIVE); PROTEIN, URINE AUTO 1+ mg/dL (NEGATIVE); RBC, URINE AUTO 10 /HPF (0-3); SPECIFIC GRAVITY URINE AUTO 1.017 (1.002-1.035); SQUAMOUS EPITHELIAL CELL UR AU 1 /HPF (0-6); UROBILINOGEN, URINE AUTO 0.2 mg/dL (0.0-2.0); WBC, URINE AUTO 8 /HPF (0-3)
== END ==
LOC: M SMT 17:10
DX: R82.90 Unspecified abnormal findings in urine (principal)
CPT/HCPCS: 81001

== ENCOUNTER 2018-04-25 19:10 | Emergency (ER) | payer MEDICARE, OTHER ==
[2018-04-25 19:57] LABS: BEDSIDE GLUCOSE 65 MG/DL (83-110)
[2018-04-25 20:44] LABS: BASO # 0.1 10^3/uL (0.0-0.2); BASO % 1.3 % (0.0-1.0); EOS # 0.1 10^3/uL (0.0-0.50); EOS % 2.6 % (0.0-3.0); HEMATOCRIT 41.5 % (42.0-52.0); HEMOGLOBIN 13.3 g/dl (13.5-17.5); IMMATURE GRANULOCYTE % 0.2 % (0-3.0); LYMPH # 1.2 10^3/uL (1.5-4.5); LYMPH % 22.3 % (24.0-44.0); MEAN CORPUSCULAR VOLUME 90.6 fl (80.0-96.0); MONO # 0.5 10^3/uL (0.0-0.8); MONO % 9.8 % (0.0-5.0); NEUTROPHILS # 3.4 10^3/uL (1.8-7.7); NEUTROPHILS % 63.8 % (36.0-66.0); PLATELET COUNT, AUTOMATED 141 10^3/uL (150-450); RED BLOOD COUNT 4.58 10^6/uL (4.30-6.10); WHITE BLOOD COUNT 5.3 10^3/uL (4.0-10.0)
[2018-04-25 21:01] LABS: INR 1.22; PROTHROMBIN TIME 15.6 SECONDS (12.1-14.4)
[2018-04-25 21:02] LABS: PARTIAL THROMBOPLASTIN TIME 36.6 SECONDS (25.4-37.6)
[2018-04-25 21:05] LABS: AMMONIA 26 uMOL/L (<32)
[2018-04-25 21:10] LABS: ANION GAP 7 MEQ/L (8-16); BLOOD UREA NITROGEN 21 MG/DL (7-18); CALCIUM LEVEL 7.8 MG/DL (8.8-10.2); CARBON DIOXIDE LEVEL 33 MEQ/L (21-32); CHLORIDE LEVEL 107 MEQ/L (98-107); CK-MB VALUE MASS 2.6 NG/ML (<3.6); CPK CREATINE PHOSPHOKINASE 138 U/L (39-308); CREATININE FOR GFR 1.19 MG/DL (0.70-1.30); GLOMERULAR FILTRATION RATE > 60.0 (>35); GLUCOSE, FASTING 102 MG/DL (70-100); MB/CK RELATIVE INDEX 1.88 (< OR =4); SODIUM LEVEL 147 MEQ/L (136-145); TROPONIN I < 0.02 NG/ML (< 0.10)
[2018-04-25 21:17] LABS: ALBUMIN 3.3 GM/DL (3.2-5.2); ALBUMIN/GLOBULIN RATIO 1.22 (1.00-1.93); ALKALINE PHOSPHATASE 67 U/L (45-117); ALT/SGPT 21 U/L (12-78); AST/SGOT 18 U/L (7-37); BILIRUBIN,DIRECT 0.2 MG/DL (0.0-0.2); BILIRUBIN,TOTAL 0.4 MG/DL (0.2-1.0)
== END 2018-04-26 00:16 | disposition home or self-care (01) ==
LOC: M ED 04-26 00:16
DX: G30.9 Alzheimer's disease, unspecified (principal); F02.80 Dementia in other diseases classified elsewhere, unspecified severity, without behavioral disturbance, psychotic disturbance, mood disturbance, and anxiety; G93.41 Metabolic encephalopathy; E87.0 Hyperosmolality and hypernatremia; I48.91 Unspecified atrial fibrillation; J44.9 Chronic obstructive pulmonary disease, unspecified; E78.5 Hyperlipidemia, unspecified; G47.33 Obstructive sleep apnea (adult) (pediatric); Z87.891 Personal history of nicotine dependence; Z79.899 Other long term (current) drug therapy; Z79.01 Long term (current) use of anticoagulants
CPT/HCPCS: 71045